=== PATIENT | male | born 1995 | race African-American/Black ===

== ENCOUNTER 2017-08-16 23:48 | Emergency (ER) | payer SELFPAY ==
[~2017-08-16] VITALS: Ht 182.9 cm; Wt 72.6 kg
[2017-08-17] VITALS: BP 114/80
[2017-08-17] MEDS ORDERED: SODIUM CHLORIDE 0.9% 1,000 ML IV ONE (01:15)
[2017-08-17] MEDS ORDERED: ONDANSETRON HCL 4 MG/2 ML VIAL IV ONE (01:15)
[2017-08-17 01:25] LABS: Urine Bilirubin Negative (Negative); Urine Blood Negative /uL (Negative); Urine Color Yellow (Yellow); Urine Glucose Normal (Normal); Urine Ketone TRACE (Negative); Urine Mucus FEW (None Seen); Urine Nitrite Negative (Negative); Urine RBC 2 /hpf (0 - 3); Urine Squamous Epithelial Cell FEW /hpf (<5); Urine Urobilinogen Normal (Negative)
[2017-08-17] MEDS ORDERED: cefTRIAXone SOD 1,000 MG VL ONE (01:35)
[2017-08-17] MEDS ORDERED: cefTRIAXone 1GM/10ml IVPUSH 10 ML IV ONE (01:45)
[2017-08-17] MEDS ORDERED: ELECTROLYTE 1000ML ORAL SOLN PO ONE ×2 (02:42→02:45)
== END 2017-08-17 02:55 | disposition home or self-care (01) ==
LOC: ER 23:48
DX: R11.2 Nausea with vomiting, unspecified (principal); F12.10 Cannabis abuse, uncomplicated; R51 Headache; E86.0 Dehydration
CPT/HCPCS: 70450; 80307; 81001; 96361; 96374; 96375; 99285; J2405; J7030; J0696

== ENCOUNTER 2017-10-27 21:04 | Emergency (ER) | payer SELFPAY ==
[~2017-10-27] VITALS: Ht 182.9 cm; Wt 63.5 kg
[2017-10-27 21:11] VITALS: BP 117/89
[2017-10-27 21:45] LABS: Basophils # (auto) 0.1 uL; Basophils % (auto) 0.6 % (0.0-2.0); Eosinophils # (auto) 0 uL; Eosinophils % (auto) 0.3 % (0.0-7.0); Hematocrit 45.1 % (41.0-53.0); Hemoglobin 15.3 g/dL (13.5-17.5); Lymphocytes # (auto) 1.3 uL; Lymphocytes % (auto) 11.8 % (10.0-50.0); Mean Corpuscular Hemoglobin 30.7 pg (28.0-32.0); Mean Corpuscular Volume 90.3 fL (80.0-100.0); Monocytes # (auto) 1.1 uL; Monocytes % (auto) 10.2 % (0.0-12.0); Neutrophils # (auto) 8.2 uL; Neutrophils % (auto) 77.1 % (37.0-80.0); Platelet Count (auto) 195 10^3/uL (140-450); Red Cell Distribution Width 14.9 % (11.8-14.3); White Blood Cell 10.7 10^3/uL (4.4-10.8)
[2017-10-27 22:01] LABS: Albumin 3.9 g/dL (3.4-5.0); BUN/Creatinine Ratio 10.1; Bilirubin, Total 0.5 mg/dL (0.2-1.0); Calcium 9.3 mg/dL (8.5-10.1); Potassium 3.5 mmol/L (3.5-5.1); Total Protein 8.3 g/dL (6.4-8.2)
== END 2017-10-28 04:10 | disposition left against medical advice (07) ==
LOC: ER 21:04 → EDBD 21:04 → ER 10-28 04:10
DX: R10.9 Unspecified abdominal pain (principal); R11.0 Nausea; Z53.21 Procedure and treatment not carried out due to patient leaving prior to being seen by health care provider
CPT/HCPCS: 36415; 74176; 80053; 82150; 83690; 85025

== ENCOUNTER 2018-10-02 16:23 | Emergency (ER) | payer MEDICAID ==
[~2018-10-02] VITALS: Ht 177.8 cm; Wt 72.6 kg
[2018-10-02] MEDS ORDERED: HYDROcodone-ACET 10/325MG TAB PO ONE (20:45)
[2018-10-02] MEDS ORDERED: BACLOFEN 10 MG TAB PO ONE (20:45)
[2018-10-02 21:00] VITALS: BP 112/72
== END 2018-10-02 21:21 | disposition home or self-care (01) ==
LOC: EDBD 16:23 → ER 16:26
DX: M62.838 Other muscle spasm (principal); M54.2 Cervicalgia; F12.90 Cannabis use, unspecified, uncomplicated; V49.9XXA Car occupant (driver) (passenger) injured in unspecified traffic accident, initial encounter; Y93.89 Activity, other specified; Y99.8 Other external cause status; Y92.89 Other specified places as the place of occurrence of the external cause
CPT/HCPCS: 71045; 72040

== ENCOUNTER 2024-10-23 09:31 | Emergency (ER) | payer MEDICAID ==
[~2024-10-23] VITALS: Ht 185.4 cm; Wt 80.3 kg
--- NOTE | 2024-10-23 10:17 | DVH ---
CLINICAL INFORMATION: 29 years old, Male; BACK PAIN. TECHNIQUE: 3 views of the lumbar spine were obtained. COMPARISON: None FINDINGS: There are 6 kce-fqz-bzdicty lumbar type vertebrae with transitional vertebra at the lumbosa cral junction possibly a lumbarized S1. Last intervertebral disc space will be designated S1-S2 for t he purposes of numbering on this exam. Mild straightening of the normal lumbar lordosis. No significa nt spondylolisthesis. Vertebral body heights are maintained. Posterior elements are intact. No acute fracture. Nqnx-jk-nrrqgfil disc space narrowing L5-S1 moderate disc space narrowing at S1-S2. Paraspi nal soft tissues are grossly unremarkable. IMPRESSION: 1. No acute fracture or malalignment. 2. 6 tcu-ger-xnejtdk lumbar-type vertebrae with transitional anatomy at the lumbosacral junction as d escribed above.
[2024-10-23] MEDS ORDERED: IBUP-1455 PO (10:32)
[2024-10-23] MEDS ORDERED: CYCL-837 PO (10:32)
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
[2024-10-23] MEDS: KETOROLAC TROMETH 30 MG/ML 1ML VIAL IM ONE (10:40)
[2024-10-23 10:44] VITALS: BP 120/84; PULSE 118; RESP 16; TEMP 99; O2SAT 100
== END 2024-10-23 10:46 | disposition home or self-care (01) ==
LOC: ER 09:31
DX: S33.5XXA Sprain of ligaments of lumbar spine, initial encounter (principal); V89.2XXA Person injured in unspecified motor-vehicle accident, traffic, initial encounter; Y93.89 Activity, other specified; Y92.410 Unspecified street and highway as the place of occurrence of the external cause; Y99.8 Other external cause status
CPT/HCPCS: 72100; 96372; 99283; J1885

== ENCOUNTER 2025-06-28 08:51 | Emergency (ER) | payer MEDICAID ==
[~2025-06-28] VITALS: Ht 185.4 cm; Wt 82.0 kg
[~2025-06-28 08:51] MED LIST: CYCL-837 PO; IBUP-1455 PO
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
[2025-06-28 10:54] VITALS: BP 107/62; PULSE 85; RESP 18; TEMP 97.9; O2SAT 98
== END 2025-06-28 10:58 | disposition home or self-care (01) ==
LOC: ER 08:51
DX: S01.81XA Laceration without foreign body of other part of head, initial encounter (principal); Y08.89XA Assault by other specified means, initial encounter; Y93.89 Activity, other specified; Y92.89 Other specified places as the place of occurrence of the external cause; Y99.8 Other external cause status
CPT/HCPCS: 12013; 70450; 70486

== ENCOUNTER 2025-07-10 09:01 | Emergency (ER) | payer MEDICAID ==
[~2025-07-10] VITALS: Ht 182.9 cm; Wt 82.1 kg
[2025-07-10 09:03] VITALS: BP 109/58; PULSE 66; RESP 17; TEMP 98; O2SAT 99
--- NOTE | 2025-07-10 10:21 | ED.PDOC ---
History of Present Illness(SKN HPI Comments 30-year-old male who presents to the ED for chief complaint of suture removal. Patient states any surgery placed 10 days prior at [facility] to the left side of the forehead. The patient in the ED has not noted eight sutures to the left side forehead. No noted redness or swelling noted around suture area. Patient otherwise in the ED has a little vitals. Patient denies any other symptoms. Chief Complaint: Suture Removal Time Seen by MD: 10:17 Primary Care Provider: NONE History of Present Illness: Medications, Allergies Allergies: Coded Allergies: NO KNOWN ALLERGIES (Unverified , 08/17/17) Home Meds Active Scripts Cyclobenzaprine Hcl (Cyclobenzaprine Hcl) 5 Mg Tab, 1 TAB PO TID PRN, #30 TAB Prov:WHITNEY LUNA 10/23/24 Ibuprofen Micronized (Ibuprofen) 800 Mg Tab, 800 MG PO TID PRN, #40 TAB Prov:WHITNEY LUNA 10/23/24 Information Source: Patient Mode of Arrival: Ambulatory Brought in by: Self Past Medical History PAST MEDICAL HISTORY: Denies Surgical History: Denies all surgeries Social History Smoker: Non-Smoker Alcohol: Denies ETOH Use Drugs: Marijuana Lives In: Home Constitutional: denies: chills, diaphoresis, fatigue, fever, malaise, sweats, weakness, others EENTM: denies: blurred vision, double vision, ear bleeding, ear discharge, ear drainage, ear pain, ear ringing, eye pain, eye redness, hearing loss, mouth pain, mouth swelling, nasal discharge, nose bleeding, nose congestion, nose pain, photophobia, tearing, throat pain, throat swelling, voice changes, others Respiratory: denies: cough, hemoptysis, orthopnea, SOB at rest, shortness of breath, SOB with excertion, stridor, wheezing, others Cardiovascular: denies: chest pain, dizzy spells, diaphoresis, Dyspnea on exertion, edema, irregular heart beat, left arm pain, lightheadedness, palpitations, PND, syncope, others Gastrointestinal: denies: abdomen distended, abdominal pain, blood streaked bowels, constipated, diarrhea, dysphagia, difficulty swallowing, hematemesis, melena, nausea, poor appetite, poor fluid intake, rectal bleeding, rectal pain, vomiting, others Genitourinary: denies: burning, dysuria, flank pain, frequency, hematuria, incontinence, penile discharge, penile sore, pain, testicle pain, testicle swelling, urgency, others Neurological: denies: dizziness, fainting, headache, left sided numbness, left sided weakness, numbness, paresthesia, pre-existing deficit, right sided numbness, right sided weakness, seizure, speech problems, tingling, tremors, weakness, others Musculoskeletal: denies: back pain, gout, joint pain, joint swelling, muscle pain, muscle stiffness, neck pain, others Integumetry: reports: others (Sutures noted to the left side of the head); denies: bruises, change in color, change in hair/nails, dryness, laceration, lesions, lumps, rash, wounds Allergic/Immunocompromised: denies: Difficulty Healing, Frequent Infections, Hives, Itching, others Hematologic/Lymphatic: denies: anemia, blood clots, easy bleeding, easy b ruising, swollen glands, others Endocrine: denies: excessive hunger, excessive sweating, excessive thirst, excessive urination, flushing, intolerance to cold, intolerance to heat, unexplained weight gain, unexplained weight loss, others Psychiatric: denies: anxiety, bipolar disorder, depression, hopeless, panic disorder, schizophrenia, sleepless, suicidal, others All Other Systems: Reviewed and Negative Physical Exam General Appearance: No Apparent Distress, Normal HEENT: Normal ENT Inspection, Pharynx Normal, TMs Normal Neck: Full Range of Motion, Non-Tender, Normal, Normal Inspection Respiratory: Chest Non-Tender, Lungs Clear, No Accessory Muscle Use, No Respiratory Distress, Normal Breath Sounds Cardiovascular: No Edema, No JVD, No Murmur, No Gallop, Normal Peripheral Pulses, Regular Rate/Rhythm Breast Exam: Deferred Gastrointestinal: No Organomegaly, Non Tender, No Pulsatile Mass, Normal Bowel Sounds, Soft Genitalia: Deferred Pelvic: Deferred Rectal: Deferred Extremities: No calf tenderness, Normal capillary refill, Normal inspection, Normal range of motion, Non-tender, No pedal edema Musculoskeletal : Apperance: Normal Neurologic: Alert, benzene washer operator II-XII nml as Tested, No Motor Deficits, Normal Affect, Normal Mood, No Sensory Deficits Cerebellar Function: Normal Reflexes: Normal Skin: Other (Eight sutures noted to the left side of the head) Lymphatic: No Adenopathy Was a procedure done? Was a procedure done?: No Other Procedure Procedure Suture removal Indication The patient had eight sutures placed 10 days prior at [facility] Differential Diagnosis (INTG) Abscess: Abscess, Bacteremia, Cellulitis X-Ray, Labs, Meds, VS Vital Signs Date Time Temp Pulse Resp B/P (MAP) Pulse Ox O2 Delivery O2 Flow Rate FiO2 07/10/25 09:03 98.0 66 17 109/58 99 98.0 X-Ray, Labs, Meds, VS Comment Patient arrives alert and oriented, ABC's intact, afebrile, vital signs stable, saturating well in room air Used sterile suture removal kit to remove sutures. Clean, dry, intact. No discharge seen. Education provided to keep area clean and dry. If gets soiled, use soap and water to clean. Watch out for signs and symptoms of infection including fever, chills, yellow or green discharge, increased pain, swelling etc. Additional MDM Review of External, Non-ED records: External records reviewed. Discussion with independent historian (EMS, family) history obtained from the patient/parents (if applicable) at bedside Chronic conditions affecting care: None Social determinants of health affecting care: None Consideration of admission (observation or admission): I considered escalation of care to admission for this patient, however given the reassuring workup, the patient is safe for outpatient management. Discussion with the Radiology: No Tests considered but not performed: Prescription medication considered but not given: 12 lead EKG interpretation: Time of 1ST Reevaluation: 10:40 Reevaluation 1ST: Unchanged Patient Education/Counseling: Diagnosis, Treatment Family Education/Counseling: No Family Present SEPSIS Sepsis Screen Date sepsis recognized/suspect: Jul 10, 2025 Time Sepsis recognized/suspect: 899 Recent Procedure: No On Antibiotic Therapy: No Respiratory Rate >20: No Heart Rate >90: No Temp<36 C (96.8 F) or >38.3 C: No SBP <90 or MAP <65 mmHG: No New Acute Mental Status Change: No Is the patient on CPAP, BIPAP,: No Vital Signs Date Time Temp Pulse Resp B/P (MAP) Pulse Ox O2 Delivery O2 Flow Rate FiO2 07/10/25 09:03 98.0 66 17 109/58 99 98.0 Departure 1 Departure Time of Disposition: 10:21 Impression: Primary Impression: Encounter for removal of sutures Disposition: HOME / SELF CARE / HOMELESS Condition: Stable Discharged With: Self Critical Care Note Critical Care Time?: No Stability Stability form required: No Heart Score Heart Score: Heart Score Response (Comments) Value History N/A 0 EKG N/A 0 Age N/A 0 Risk Factors N/A 0 Troponin N/A 0 Total 0 I personally scribed for AMARILYS DIEGO NP ([email or web address]) on 07/10/25 at 10:21. Electronically submitted by Ame Pineda ([email or web address]). AMARILYS DIEGO NP Jul 10, 2025 10:21
== END 2025-07-10 10:33 | disposition home or self-care (01) ==
LOC: ER 09:01
DX: S01.81XD Laceration without foreign body of other part of head, subsequent encounter (principal); X58.XXXD Exposure to other specified factors, subsequent encounter